=== PATIENT | male | born 1990 | race Caucasian/White ===

== ENCOUNTER 2020-07-17 10:15 | Emergency (ER) | payer OTHER ==
[~2020-07-17] VITALS: Wt 106.6 kg
[~2020-07-17 10:15] MED LIST: KEFLEX500 MG PO
[2020-07-17] MEDS ORDERED: PERCOCET 5-3251 EACH PO (12:25)
[2020-07-17] MEDS ORDERED: Motrin,Rufen800 MG PO (12:26)
== END 2020-07-17 12:26 | disposition home or self-care (01) ==
LOC: ED 10:15
DX: S92.355A Nondisplaced fracture of fifth metatarsal bone, left foot, initial encounter for closed fracture (principal); W07.XXXA Fall from chair, initial encounter; Y93.89 Activity, other specified; Y92.89 Other specified places as the place of occurrence of the external cause; Y99.8 Other external cause status

== ENCOUNTER 2020-07-24 16:23 | Emergency (ER) | payer OTHER ==
[~2020-07-24] VITALS: Ht 177.8 cm; Wt 108.9 kg
[~2020-07-24 16:23] MED LIST changes: +Motrin,Rufen800 MG PO; +PERCOCET 5-3251 EACH PO
[2020-07-24] MEDS ORDERED: IBUPROFEN600 MG PO (18:24)
== END 2020-07-24 18:27 | disposition home or self-care (01) ==
LOC: ED 16:23
DX: S86.812A Strain of other muscle(s) and tendon(s) at lower leg level, left leg, initial encounter (principal); X58.XXXA Exposure to other specified factors, initial encounter; Y93.89 Activity, other specified; Y92.89 Other specified places as the place of occurrence of the external cause; Y99.9 Unspecified external cause status